=== PATIENT | male | born 1980 | race Caucasian/White ===

== ENCOUNTER 2021-08-09 00:13 | Emergency (ER) | payer OTHER ==
[~2021-08-09 00:13] MED LIST: ASPIRIN325 MG PO; CARVEDILOL 1212.5 MG PO; COZAAR50 MG PO; KEFLEX500 MG PO; LIPITOR40 MG PO; NORCO 5-325 TA1 EACH PO; NORVASC2.5 MG PO; PERCOCET 5-3251 EACH PO; PROZAC20 MG PO; ZANTAC150 MG PO; ZOFRAN4 MG PO
[2021-08-09] MEDS ORDERED: AUGMENTIN 875-1 EACH PO (02:40)
[2021-08-09] MEDS ORDERED: NORCO 5-325 TA1 EACH PO (02:40)
[2021-08-09] MEDS ORDERED: IBUPROFEN800 MG PO (02:40)
== END 2021-08-09 03:00 | disposition home or self-care (01) ==
LOC: FER 00:13
DX: S31.31XA Laceration without foreign body of scrotum and testes, initial encounter (principal); I10 Essential (primary) hypertension; Z88.8 Allergy status to other drugs, medicaments and biological substances; Z23 Encounter for immunization; Z79.899 Other long term (current) drug therapy; W54.0XXA Bitten by dog, initial encounter; Y92.410 Unspecified street and highway as the place of occurrence of the external cause
CPT/HCPCS: 76870; 90375; 90675; 96372; J1170; J1885

== ENCOUNTER 2021-08-27 14:55 | Emergency (ER) | payer OTHER ==
[~2021-08-27 14:55] MED LIST changes: +AUGMENTIN 875-1 EACH PO; +IBUPROFEN800 MG PO
== END 2021-08-27 16:06 | disposition home or self-care (01) ==
LOC: FER 14:55
DX: Z48.01 Encounter for change or removal of surgical wound dressing (principal); I25.2 Old myocardial infarction; Z98.890 Other specified postprocedural states; Z95.5 Presence of coronary angioplasty implant and graft
CPT/HCPCS: 99282